=== PATIENT | female | born 1950 | race Caucasian/White ===

== ENCOUNTER → 2017-11-27 | Outpatient (CLI) | payer MEDICARE, OTHER ==
[~2017-11-27] MED LIST: AMLO10TA4 PO; ASPI-682 PO; ATEN50TA41 PO; HYDR12.53; LISI40TA PO; OMNIPAQUE 350 MG/ML, 100ML BOTTLE ONE
== END | disposition home or self-care (01) ==
LOC: CFH 12:23
PROVIDERS: ATTEND Family Medicine
DX: M51.36 Other intervertebral disc degeneration, lumbar region (principal); R10.11 Right upper quadrant pain
CPT/HCPCS: 74177; Q9967

== ENCOUNTER 2020-10-22 11:01 | Outpatient (CLI) | payer MEDICARE, OTHER ==
[~2020-10-22 11:01] MED LIST changes: +ASPI-1027 PO; -ASPI-682 PO; +HYDR12.517; -HYDR12.53; -LISI40TA PO; +LISI40TA9 PO; -OMNIPAQUE 350 MG/ML, 100ML BOTTLE ONE
== END 2020-10-22 23:59 | disposition home or self-care (01) ==
LOC: CFH 11:01
PROVIDERS: ATTEND Family Medicine
DX: Z12.31 Encounter for screening mammogram for malignant neoplasm of breast (principal)
CPT/HCPCS: 77063; 77067

== ENCOUNTER 2020-11-20 11:53 | Outpatient (CLI) | payer MEDICARE, OTHER | END 2020-11-20 23:59 | disposition home or self-care (01) | LOC: CFH 11:53 | PROVIDERS: ATTEND Family Medicine | DX: R92.2 Inconclusive mammogram (principal) | CPT/HCPCS: 76641 ==